=== PATIENT | male | born 1970 | race Caucasian/White ===

== ENCOUNTER 2017-02-07 19:47 | Emergency (ER) | payer OTHER ==
[2017-02-07] MEDS ORDERED: Ketorolac INJ* 60 MG/2 ML VIAL IM ONE (22:11)
--- NOTE | 2017-02-07 22:19 | UC ---
Neck Pain HPI - HPI Summary HPI Summary: 46 y/o male present to the urgent are c/o of neck pain for the past 2 weeks. Pt reports he works in construction. He was fixing a ceiling and that's when the pain started. He has been taking ibuprofen on and off. However pain is getting worse specially with movement. Pain today is 10/10 w/ movement and 8/ 10 at rest with radiation to the head. Pt denies any numbness or tingling over the upper extremities. Pt denies fever, SHEARER, SOB, chest pain, N/V/D, Pt has not other complain - History of Current Complaint Hx Obtained From: Patient Onset/Duration Of Injury/Symptoms: Weeks Timing: Constant Onset/Duration: Gradual Onset, Lasting Weeks, Still Present Severity: Severe Pain Intensity: 10 - with movement Pain Scale Used: 0-10 Numeric Location: Discrete At: - neck, Radiates To: - head Character: Sharp Aggravating Factors: Movement Alleviating Factors: OTC Meds Associated Signs & Symptoms: Positive: Negative. Negative: Swelling, Redness, Fever, Nuchal Rigity, Weakness, Headache, Paresthesia - Risk Factors Meningitis Risk Factors: Negative <Mable Kennedy - Last Filed: 02/09/17 17:56> <Alison Alcantara - Last Filed: 02/09/17 20:45> - History of Current Complaint Chief Complaint: UCUpperExtremity Stated Complaint: NECK AND SHOULDER PAIN Time Seen by Provider: 02/07/17 22:01 - Allergies/Home Medications Allergies/Adverse Reactions: Allergies Allergy/AdvReac Type Severity Reaction Status Date / Time No Known Allergies Allergy Verified 09/05/14 12:21 PMH/Surg Hx/FS Hx/Imm Hx Previously Healthy: Yes - Surgical History Surgical History: Yes Surgery Procedure, Year, and Place: right leg, femur fx - Family History Known Family History: Positive: None - Social History Occupation: Employed Full-time Lives: With Family Alcohol Use: Occasionally Substance Use Type: None Smoking Status (MU): Heavy Every Day Tobacco Smoker Type: Cigarettes Amount Used/How Often: 1ppd Length of Time of Smoking/Using Tobacco: 30 years Have You Smoked in the Last Year: Yes Household Exposure Type: Cigarettes <Mable Kennedy - Last Filed: 02/09/17 17:56> Review Of Systems Constitutional: Positive: Negative Skin: Positive: Negative Eyes: Positive: Negative ENT: Positive: Negative Respiratory: Positive: Negative Cardiovascular: Positive: Negative Gastrointestinal: Positive: Negative Genitourinary: Positive: Negative Musculoskeletal: Positive: Decreased ROM - due to neck pain Neurological: Positive: Negative Psychological: Positive: Negative All Other Systems Reviewed And Are Negative: Yes <Mable Kennedy Last Filed: 02/09/17 17:56> Physical Exam Triage Information Reviewed: Yes Appearance: Well-Appearing, No Pain Distress, Well-Nourished, Thin Vital Signs: Initial Vital Signs Temp 98.2 F 02/07/17 19:52 Pulse 94 02/07/17 19:52 Resp 18 02/07/17 19:52 BP 130/92 02/07/17 19:52 Pulse Ox 100 02/07/17 19:52 Vital Signs Reviewed: Yes Eye Exam: Normal Eyes: Positive: Conjunctiva Clear - PERRLA, EOMI, fundi grossly normal ENT Exam: Normal ENT: Positive: Normal ENT inspection, Hearing grossly normal, Pharynx normal, TMs normal Dental Exam: Normal Neck: Positive: Tenderness @ - point tenderness over the trapezius muscles, w/ moderate spasm. Decrease ROM on flexion and extesion due to pain. No erythema or swelling observed. Positive sensation and reflexes intanct over the upper extremities. pulses and capillary refill intact.. Negative: No Lymphadenopathy Respiratory Exam: Normal Respiratory: Positive: Chest non-tender, Lungs clear, Normal breath sounds, No respiratory distress Cardiovascular Exam: Normal Cardiovascular: Positive: RRR, No Murmur, Pulses Normal, Brisk Capillary Refill Abdominal Exam: Normal Abdomen Description: Positive: Nontender, No Organomegaly, Soft. Negative: CVA Tenderness (R), CVA Tenderness (L) Bowel Sounds: Positive: Present Musculoskeletal Exam: Normal Musculoskeletal: Positive: Strength Intact, ROM Intact, No Edema Neurological Exam: Normal Neurological: Positive: Alert Psychological Exam: Normal Skin Exam: Normal <Mable Kennedy Last Filed: 02/09/17 17:56> Vital Signs: Initial Vital Signs Temp 98.2 F 02/07/17 19:52 Pulse 94 02/07/17 19:52 Resp 18 02/07/17 19:52 BP 130/92 02/07/17 19:52 Pulse Ox 100 07/25/17 19:52 <Alison Alcantara - Last Filed: 02/09/17 20:45> Neck Pain Course/Dx - Course Course Of Treatment: 46 y/o male present to the urgent are c/o of neck pain for the past 2 weeks. 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 He was fixing a ceiling and that's when the pain started. He has been taking ibuprofen on and off. However pain is getting worse specially with movement. Pain today is 10/ 10 w/ movement and 8/10 at rest with radiation to the head. Pt denies any numbness or tingling over the upper extremities. Pt denies fever, SHEARER, SOB, chest pain, N/V/D. Hx obtained. PE abnormal findings:point tenderness over the trapezius muscles, w/ moderate spasm. Decrease ROM on flexion and extesion due to pain. No erythema or swelling observed. Positive sensation and reflexes intanct over the upper extremities. pulses and capillary refill intact. Pt Rx Robaxin and Naproxen PO to alleviate symptoms, he was placed on a soft collar to release neck tension. Advised to f/u with PCP if symptoms do not improve. Pt understood and agreed and left the clinic ambulating. Pt advised on decrease salt intake in his diet due to his elevated BP, monitor his BP at home and f/u with a PCP form the [facility] referral center ffor further management. - Differential Dx/Diagnosis Differential Dx/HQI/PQRI: Arthritis, Sprain, Strain, Torticollis Provider Diagnoses: 1- Acute neck pain and spasm. 2- Elevated BP w/o Hx of HTN <Mable Kennedy - Last Filed: 02/09/17 17:56> Discharge <Mable Kennedy - Last Filed: 02/09/17 17:56> <Alison Alcantara - Last Filed: 02/09/17 20:45> - Discharge Plan Condition: Stable Disposition: HOME Prescriptions: Methocarbamol TAB* [Robaxin 500 MG TAB*] 750 mg PO TID PRN #12 tab PRN Reason: Spasms Naproxen TAB* [Naprosyn 250 mg TAB*] 500 mg PO Q8H PRN #30 tab PRN Reason: Pain Patient Education Materials: Cervical Strain (ED), Neck Pain (ED) Referrals: [facility] PHYSICIAN REFERRAL [Outside] No Primary Care Phys,NOPCP [Primary Care Provider] - Additional Instructions: Please take medications as indicated to alleviate symptoms of pain and spasm. Please wear the neck collar until symptoms improve. Please f/u with a PCP from the [facility] referral center for further evaluation and treatment. Please decrease salt in your diet and monitor your blood pressure and f/u with PCP for further management of elevated BP. Attestation Statement User Type: Provider - I was available for consult. This patient was seen by the advanced practice provider. The patient was not presented to, seen by, or examined by me.-Alejandro <Alison Alcantara - Last Filed: 02/09/17 20:45>
[2017-02-07 22:36] VITALS: BP 146/109
== END 2017-02-07 22:36 | disposition home or self-care (01) ==
LOC: UCEAST 19:47
DX: M54.2 Cervicalgia (principal); M62.830 Muscle spasm of back; R03.0 Elevated blood-pressure reading, without diagnosis of hypertension; F17.210 Nicotine dependence, cigarettes, uncomplicated
CPT/HCPCS: 96372; 99213; G0463; J1885

== ENCOUNTER 2017-04-05 16:21 | Observation (INO) | payer OTHER ==
[2017-04-05] MEDS ORDERED: Diazepam SYRINGE* 5 MG/ML SYRINGE IV ONE ×2 (17:03→19:32)
[2017-04-05] MEDS ORDERED: Aspirin Low Dose CHEW TAB* 81 MG PO ONE (17:04)
[2017-04-05] MEDS ORDERED: NS 0.9% 1000 ML* 1,000 ML IV ONE ×2 (17:04→19:30)
[2017-04-05] MEDS ORDERED: Aspirin Low Dose CHEW TAB* 81 MG ONE (17:07)
[2017-04-05 17:30] LABS: Hematocrit 32 % (42-52); Hemoglobin 11.1 g/dl (14.0-18.0); Mean Corpuscular HGB Conc 34 g/dl (31-36); Mean Corpuscular Hemoglobin 29 pg (27-31); Mean Corpuscular Volume 85 fL (80-94); Mean Platelet Volume 8 um3 (7.4-10.4); Red Blood Count 3.81 10^6/ul (4.0-5.4); Red Cell Distribution Width 15 % (10.5-15); White Blood Count 9.3 10^3/ul (3.5-10.8)
[2017-04-05 17:57] LABS: Albumin 2.7 g/dL (3.2-5.2); BUN/Creatinine Ratio 18.3 (8-20); Calcium 8.8 mg/dL (8.6-10.3); EGFR African American 130.1 (>60); EGFR Non-African American 101.1 (>60); Globulin 5.9 g/dL (2-4); Magnesium 1.7 mg/dL (1.9-2.7); Potassium 3.5 mmol/L (3.5-5.0); Total Bilirubin 0.4 mg/dL (0.2-1.0); Total Protein 8.6 g/dL (6.4-8.9)
[2017-04-05 18:06] LABS: TSH (Thyroid Stimulating Horm) 15.2 mcIU/mL (0.34-5.60)
--- NOTE | 2017-04-05 19:21 | ED ---
Complex/Multi-Sys Presentation - HPI Summary HPI Summary: Pt here w/ multiple sx. He is here w/ alternating, intermittent neck pain - started 2 weeks ago on Rt side w/ jaw pain/tightness. Today has shifted to Lt side of neck and jaw. Also has upper back pain. 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 Following day was sore but iced and continued to work. Was seen at a few days later as pain was too bad - rx'd NSAID's, muscle relaxer, heat. Helped for a few days but pain has mostly been getting worse. He also works long hours at a [employer] shop - has been working extra hours as well. Noticed Lt hip pain upon waking the other day and then Rt hip pain this morning - feels like someone hit him w/ a shovel. 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 Admits to h/o self-diagnosed panic attacks - does not feel he's having one now but reports 10/10 pain. Oral dryness intermittent @ night past few weeks. Increased urination last night. Denies chest pain, SOB, difficulty breathing or swallowing, dental pain, ST, otalgia, rhinorrhea, cough, mid/lower back pain, ab pain, fever, chills, N/V/D, skin changes, LE edema. No trauma to body (ie. MVA, fall from height, etc). Admits to 2 cups of coffee in the AM but otherwise no caffeine intake. Smokes cigarettes daily, 1-1.5 PPD. ETOH intake is rare ((couple of times a year). Does admit to smoking marijuana about 2 x month (recreationally). Has not seen a medical provider in 20 years. Established with new PCP today - has CPE schedule for beginning of April. - History Of Current Complaint Chief Complaint: EDGeneral Time Seen by Provider: 04/05/17 16:42 Hx Obtained From: Patient, Family/Targeting Acquisition Officer - female partner - Allergies/Home Medications Allergies/Adverse Reactions: Allergies Allergy/AdvReac Type Severity Reaction Status Date / Time No Known Allergies Allergy Verified 09/05/14 12:21 PMH/Surg Hx/FS Hx/Imm Hx Previously Healthy: Yes - no medical attention in 20 yrs Endocrine/Hematology History: Denies: Hx Thyroid Disease, Hx Anemia Cardiovascular History: Denies: Hx Aneurysm, Hx Angina, Hx Atrial Fibrillation, Hx Congenital Heart Disease, Hx Congestive Heart Failure, Hx Coronary Artery Disease, Hx Embolism, Hx Hypercholesterolemia, Hx Hypotension, Hx Hypertension, Hx Myocardial Infarction Psychiatric History: Reports: Hx Anxiety - self-proclaimed panic attacks - Surgical History Surgery Procedure, Year, and Place: right leg, femur fx - Immunization History Immunizations Up to Date: Unable to Obtain/Confirm Infectious Disease History: Yes Infectious Disease History: Denies: Hx Clostridium Difficile, Hx Hepatitis, Hx Human Immunodeficiency Virus (HIV), Hx of Known/Suspected MRSA, Hx Shingles, Hx Tuberculosis, Hx Known/ Suspected VRE, Hx Known/Suspected VRSA, History Other Infectious Disease, Traveled Outside the [place] in Last 30 Days - Family History Known Family History: Positive: None - Social History Occupation: Employed Full-time - [employer] Lives: With Family Alcohol Use: Occasionally Hx Substance Use: Yes Substance Use Type: Reports: Marijuana - 2 x month Hx Tobacco Use: Yes Smoking Status (MU): Current Every Day Smoker Type: Cigarettes Amount Used/How Often: 1ppd Length of Time of Smoking/Using Tobacco: 30 years Have You Smoked in the Last Year: Yes Review of Systems Constitutional: Negative Negative: Fever, Chills, Fatigue Eyes: Negative Negative: Photophobia, Blurred Vision, Diplopia ENT: Negative Cardiovascular: Negative Respiratory: Negative Gastrointestinal: Negative Positive: see HPI Musculoskeletal: Other - see HPI Skin: Negative Neurological: Other - see HPI Positive: Anxious All Other Systems Reviewed And Are Negative: Yes Physical Exam Triage Information Reviewed: Yes Vital Signs On Initial Exam: Initial Vitals Temp Pulse Resp BP Pulse Ox 99.2 F 143 20 143/85 97 04/05/17 16:24 04/05/17 16:24 04/05/17 16:24 04/05/17 16:24 04/05/17 16:24 Vital Signs Reviewed: Yes Appearance: Positive: Well-Nourished - appears anxious and in moderate discomfort Skin: Positive: Warm, Dry Head/Face: Positive: Normal Head/Face Inspection Eyes: Positive: Normal, EOMI, JOAO, Conjunctiva Clear ENT: Positive: Hearing grossly normal. Negative: Pharynx normal - mucosa somewhat dry, Nasal congestion, Nasal drainage Neck: Positive: Supple, Nontender, No Lymphadenopathy Respiratory/Lung Sounds: Positive: Clear to Auscultation, Breath Sounds Present. Negative: Rales, Rhonchi, Stridor, Wheezes Cardiovascular: Positive: Normal, Pulses are Symmetrical in both Upper and Lower Extremities, Tachycardia, S1, S2. Negative: Murmur, Rub, Leg Edema Left, Leg Edema Right Abdomen Description: Positive: Nontender, No Organomegaly, Guarding Bowel Sounds: Positive: Present Musculoskeletal: Positive: Normal, Strength/ROM Intact Neurological: Positive: Normal, Sensory/Motor Intact, Alert, Oriented to Person Place, Time, CN Intact II-III Psychiatric: Positive: Anxious - Pam Coma Scale Coma Scale Total: 15 Diagnostics - Vital Signs Vital Signs Temp Pulse Resp BP Pulse Ox 04/05/17 19:00 124 25 132/81 96 04/05/17 18:30 125 29 119/76 96 04/05/17 18:00 131 17 119/72 97 04/05/17 17:30 132 15 123/87 96 04/05/17 17:13 21 04/05/17 17:00 13 125/100 04/05/17 16:37 139 97 04/05/17 16:36 130/94 04/05/17 16:24 99.2 F 143 20 143/85 97 - Laboratory Lab Results: Lab Results 04/05/17 04/05/17 04/05/17 Range/Units 17:10 17:10 17:10 WBC 9.3 (3.5-10.8) 10^3/ul RBC 3.81 L (4.0-5.4) 10^6/ul Hgb 11.1 L (14.0-18.0) g/dl Hct 32 L (42-52) % MCV 85 (80-94) fL MCH 29 (27-31) pg MCHC 34 (31-36) g/dl RDW 15 (10.5-15) % Plt Count 328 (150-450) 10^3/ul MPV 8 (7.4-10.4) um3 Neut % (Auto) 60.7 (38-83) % Lymph % (Auto) 30.9 (25-47) % [place] % (Auto) 6.5 (1-9) % Eos % (Auto) 1.1 (0-6) % Baso % (Auto) 0.8 (0-2) % Absolute Neuts (auto) 5.6 (1.5-7.7) 10^3/ul Absolute Lymphs (auto) 2.9 (1.0-4.8) 10^3/ul Absolute Monos (auto) 0.6 (0-0.8) 10^3/ul Absolute Eos (auto) 0.1 (0-0.6) 10^3/ul Absolute Basos (auto) 0.1 (0-0.2) 10^3/ul Absolute Nucleated RBC 0.01 10^3/ul Nucleated RBC % 0.2 INR (Anticoag Therapy) 1.02 (0.89-1.11) APTT 36.1 (26.0-36.3) seconds Sodium 127 L (133-145) mmol/L Potassium 3.5 (3.5-5.0) mmol/L Chloride 98 L (101-111) mmol/L Carbon Dioxide 26 (22-32) mmol/L Anion Gap 3 (2-11) mmol/L BUN 15 (6-24) mg/dL Creatinine 0.82 (0.67-1.17) mg/dL Est GFR ( Amer) 130.1 (>60) Est GFR (Non-Af Amer) 101.1 (>60) BUN/Creatinine Ratio 18.3 (8-20) Glucose 127 H (70-100) mg/dL Lactic Acid (0.5-2.0) mmol/L Calcium 8.8 (8.6-10.3) mg/dL Magnesium 1.7 L (1.9-2.7) mg/dL Total Bilirubin 0.40 (0.2-1.0) mg/dL AST 22 (13-39) U/L ALT 16 (7-52) U/L Alkaline Phosphatase 88 (34-104) U/L Troponin I 0.00 (<0.04) ng/mL Total Protein 8.6 (6.4-8.9) g/dL Albumin 2.7 L (3.2-5.2) g/dL Globulin 5.9 H (2-4) g/dL Albumin/Globulin Ratio 0.5 L (1-3) TSH 15.20 H (0.34-5.60) mcIU/mL Free T4 Pending 04/05/17 Range/Units 17:10 WBC (3.5-10.8) 10^3/ul RBC (4.0-5.4) 10^6/ul Hgb (14.0-18.0) g/dl Hct (42-52) % MCV (80-94) fL MCH (27-31) pg MCHC (31-36) g/dl RDW (10.5-15) % Plt Count (150-450) 10^3/ul MPV (7.4-10.4) um3 Neut % (Auto) (38-83) % Lymph % (Auto) (25-47) % [place] % (Auto) (1-9) % Eos % (Auto) (0-6) % Baso % (Auto) (0-2) % Absolute Neuts (auto) (1.5-7.7) 10^3/ul Absolute Lymphs (auto) (1.0-4.8) 10^3/ul Absolute Monos (auto) (0-0.8) 10^3/ul Absolute Eos (auto) (0-0.6) 10^3/ul Absolute Basos (auto) (0-0.2) 10^3/ul Absolute Nucleated RBC 10^3/ul Nucleated RBC % INR (Anticoag Therapy) (0.89-1.11) APTT (26.0-36.3) seconds Sodium (133-145) mmol/L Potassium (3.5-5.0) mmol/L Chloride (101-111) mmol/L Carbon Dioxide (22-32) mmol/L Anion Gap (2-11) mmol/L BUN (6-24) mg/dL Creatinine (0.67-1.17) mg/dL Est GFR ( Amer) (>60) Est GFR (Non-Af Amer) (>60) BUN/Creatinine Ratio (8-20) Glucose (70-100) mg/dL Lactic Acid 1.0 (0.5-2.0) mmol/L Calcium (8.6-10.3) mg/dL Magnesium (1.9-2.7) mg/dL Total Bilirubin (0.2-1.0) mg/dL AST (13-39) U/L ALT (7-52) U/L Alkaline Phosphatase (34-104) U/L Troponin I (<0.04) ng/mL Total Protein (6.4-8.9) g/dL Albumin (3.2-5.2) g/dL Globulin (2-4) g/dL Albumin/Globulin Ratio (1-3) TSH (0.34-5.60) mcIU/mL Free T4 Result Diagrams: 04/05/17 17:10 04/05/17 17:10 Lab Statement: Any lab studies that have been ordered have been reviewed, and results considered in the medical decision making process. Re-Evaluation - Re-Evaluation First Eval Change: Improved - initially apprehensive about trying muscle relaxer/anxiety medication - agreed to low dose diazepam - mild improvement of heart rate after 2mg diazepam, not much change in anxiety - pt willing to try more Second Eval Change: Improved - anxiety much better and pain from 10/10 to 4/10 after 5mg diazepam Complex Multi-Symp Course/Dx Course Of Treatment: Pt presents w/ multiple areas of tightness and pain, today especially in Lt neck/jaw - cardiac w/u intiated and no MT per EKG and trops neg x 2 however he's Sinus tachy. TSH elevated but FT4 WNL. D-dimer then ordered which was elevated to 500's - CTA neg for PE and no comments on dissection. Mild dehydration - provided 2 L of fluid IV. Even after pt clinically feels more comfortable (reduced pain and anxiety) and BP improved, his heart rate remains elevated in 110's. Discuss[address] Dr[address] Garibay to admit. Pt and partner agree w/ plan. - Diagnoses Provider Diagnoses: Tachycardia, Muscle spasm Discharge - Discharge Plan Condition: Stable Disposition: ADMITTED TO [facility]
[2017-04-05 19:23] LABS: Free T4 0.84 ng/dL (0.61-1.12)
[2017-04-05] MEDS ORDERED: Iohexol 350* (CONTRAST) 500 ML MDV IV ONE (20:00)
[2017-04-05 20:13] LABS: Urine Bilirubin Negative (Negative); Urine Glucose Negative (Negative); Urine Nitrite Negative (Negative)
[2017-04-05 20:16] LABS: Urine Bacteria Absent (Absent)
--- NOTE | 2017-04-05 20:57 | RAD ---
INDICATION: Multifocal pain and shortness of breath COMPARISON: None TECHNIQUE: Axial source images were acquired following the administration of intravenously and utilizing CT angiographic technique. Coronal and sagittal reconstructed images were constructed and reviewed. FINDINGS: There there are no filling defects in the pulmonary arteries to indicate acute pulmonary embolic disease. There are diffuse centrilobular emphysematous changes most severely affecting the bilateral lung apices. There are no focal infiltrates or effusions. There are no pulmonary parenchymal masses. The heart is normal in size. There is no evidence of pericardial effusion. There is no evidence of aortic aneurysm or dissection. There is no mediastinal, hilar, or axillary lymphadenopathy. The visualized osseous structures appear normal. Limited views of the upper abdomen show no abnormalities. IMPRESSION: 1. No CT of evidence of pulmonary embolism. 2. Appearance of lungs is consistent with emphysematous changes.
[2017-04-05] MEDS ORDERED: Morphine INJ* 2 MG/ML 1 ML CARPUJECT IV PRN (21:39)
[2017-04-05] MEDS ORDERED: Acetaminophen TAB* 325 MG PO PRN (21:39)
[2017-04-05] MEDS ORDERED: Al Hydrox/Mg Hydrox/Simet LIQ* 30 ML UDC PO PRN (21:39)
[2017-04-05] MEDS ORDERED: oxyCODONE/Acetamin 5/325 MG* TAB PO PRN (21:39)
[2017-04-05] MEDS ORDERED: Naproxen TAB* 250 MG PO PRN (21:41)
[2017-04-05] MEDS ORDERED: Methocarbamol TAB* 500 MG PO PRN (21:41)
[2017-04-05] MEDS ORDERED: Magnesium Sulfate 2 GM IV* 2 GM/50 ML BAG IVPB ONE (21:45)
[2017-04-05] MEDS ORDERED: NS 0.9% 1000 ML* 1,000 ML IV SCH ×3 (21:45→22:09)
[2017-04-05] MEDS ORDERED: Nicotine Inhaler* 10 MG AMP INH PRN (22:09)
[2017-04-05] MEDS ORDERED: Nicotine Patch Removal NOTE PATCH OFF SCH (22:13)
[2017-04-05] MEDS ORDERED: Mouth Piece, Nicotine* 1 EACH CARTRIDGE INH SCH (22:13)
[2017-04-05 22:52] LABS: Benzodiazepine Urine Screen None Detected (None Detect)
[2017-04-05 23:21] LABS: Ferritin 124.4 ng/mL (24-336)
[2017-04-05 23:25] LABS: Folate 11.13 ng/mL (>3.99)
[2017-04-05] MEDS: Metoprolol Tartrate TAB* 25 MG PO SCH (23:34)
--- NOTE | 2017-04-06 03:39 | HP ---
CC: Dr. Nunes * HISTORY AND PHYSICAL: DATE OF ADMISSION: 04/05/17 PRIMARY CARE PHYSICIAN: Dr. Nunes. CHIEF COMPLAINT: Abnormal EKG, sent from Dr. Nunes's office. HISTORY OF PRESENT ILLNESS: Henrique Rodríguez is a 47-year-old male with a past medical history significant for smoking who stated that he works in one of the local [employer] and in February when he was putting something up on a shelf he strained his muscle on the right side of his neck and shoulder. Since then he had been taking naproxen up to 3 times a day almost every day and Robaxin for muscle relaxation. He stated that his pain still is there and he indicated point tenderness in the right upper shoulder. In addition to that today in the morning, he started having left-sided jaw pain. He also states that his calves are heavy every time he walks and he had been feeling very tired in the past couple of weeks. He went to see Dr. Nunes with those complaints, who obtained an EKG and sent the patient to ED for evaluation. Here he continued to be in sinus tachycardia with the heart rate in the 120s with negative T-waves in lateral leads. His further workup included a CT angiogram of the chest which was negative for a PE and troponin that was 0 twice. he continued to be tachycardic which slightly improved after a dose of diazepam in the emergency department. With the above mentioned problems he is going to be placed on observation to rule out acute coronary syndrome. PAST MEDICAL HISTORY: None. MEDICATIONS: Include: 1. Naproxen 500 mg up to 3 times a day for pain. 2. Robaxin on a p.r.n. basis. ALLERGIES: No known drug allergies. FAMILY HISTORY: Positive for grandfather with colon cancer, mother with history of multiple sclerosis, and father with diabetes. SOCIAL HISTORY: The patient smokes 1 pack per day, started smoking when he was 13. He denies any alcohol or drug use. He lives alone and his surrogate would be his aunt Puja. Her phone number is [phone]. REVIEW OF SYSTEMS: Please see history of present illness. Positive for overall fatigue. Negative for chest pain. Positive for left-sided jaw pain today. Currently, the patient is pain free. All the remaining 14 systems were reviewed with the patient and apart from the above mentioned in the history of present illness were negative. PHYSICAL EXAMINATION GENERAL: The patient is a very pleasant 47-year-old male who is in no acute distress. Alert, awake, and oriented x3. VITAL SIGNS: Blood pressure of 132/81, heart rate of 115 and regular, respiratory rate of 25, oxygen saturation 96% on room air, and temperature of 99.2. HEENT: Atraumatic and normocephalic. Eyes pupils are equal, round, and reactive to light and accommodation. Oropharynx clear. Mucosa moist. NECK: Supple. Positive for JVD bilaterally. There was no adenopathy and no bruits noted. RESPIRATORY: Coarse breath sounds at the bilateral bases, otherwise clear. CARDIOVASCULAR: Regular, rate, and rhythm. Tachycardia. No murmur. ABDOMEN: Soft and nontender. Bowel sounds present in all 4 quadrants. EXTREMITIES: There is no edema, pulses are +2 bilaterally. No clubbing or cyanosis. SKIN: Evaluation of the skin, no ecchymotic areas or rashes noted. NEUROLOGIC: Speech clear. Cranial nerves II through XII grossly intact. Motor strength is 5/5 bilaterally. LABORATORY DATA: Showed white blood cell count of 9.3, hemoglobin 11.1, hematocrit of 32, and platelets of 328. A D-dimer of 541. Sodium of 127, potassium 3.5, chloride 98, carbon dioxide 26 , BUN 15, creatinine of 0.82. Liver function tests were unremarkable. Magnesium of 1.7, albumin of 2.7, globulin of 5.9, TSH of 15, free T4 of 0.8, troponin of 0.0. Urinalysis showed granular casts and hyaline casts and +[address] angiogram of the chest showed emphysematous changes and no PE. The patient's EKG showed sinus tachycardia with a heart rate of 133 per minute with negative T-waves in leads V4 to V6. ASSESSMENT AND PLAN: 1. In regards to the patient's jaw pain, abnormal EKG and sinus tachycardia, I will ask the credit collection associate to please see the patient in consultation. The patient likely will be requested to have a treadmill Myoview in the morning as well as a transthoracic echocardiogram. At this point there is a possibility that he has response tachycardia due to low EF. It could have been worsened by non-steroidal antiinflammatory use. 2. In regards to the patient's smoking, he was strongly counseled to stop smoking. He is going to be placed on nicotine patch as well as inhaler. 3. For DVT prophylaxis, the patient is at low risk and ambulation is going to be encouraged. 4. The patient has elevated TSH. At this point his free T4 is within normal limits and our advise for the patient to follow up with Dr. Nunes. We will repeat TSH in approximately 4 weeks. Please also note that during the evaluation the patient had point tenderness over the right deltoid platysma muscle on palpation. For the time being he is going to be placed on Tylenol and we will avoid nonsteroidal antiinflammatory medications. The patient's code status is full and his surrogate is his aunt Puja. TIME SPENT: Approximately 65 minutes was spent on the admission of this patient , more than half that time was spent [id number] with the patient during the interview and physical exam. [id number] #: [id number] MTDD
[2017-04-06 06:00] LABS: Hematocrit 30 % (42-52); Hemoglobin 10.4 g/dl (14.0-18.0); Mean Corpuscular HGB Conc 34 g/dl (31-36); Mean Corpuscular Hemoglobin 30 pg (27-31); Mean Corpuscular Volume 87 fL (80-94); Mean Platelet Volume 8 um3 (7.4-10.4); Red Cell Distribution Width 15 % (10.5-15)
[2017-04-06 06:16] LABS: BUN/Creatinine Ratio 17.4 (8-20); Calcium 7.8 mg/dL (8.6-10.3); EGFR African American 123.1 (>60); EGFR Non-African American 95.7 (>60); Magnesium 1.9 mg/dL (1.9-2.7); Potassium 3.8 mmol/L (3.5-5.0)
[2017-04-06 07:22] VITALS: BP 121/87
[2017-04-06 08:45] LABS: HDL Cholesterol 14.4 mg/dL
[2017-04-06] MEDS ORDERED: Nicotine PATCH 14 MG/24 HR* PATCH TRANSDERM SCH (09:00)
--- NOTE | 2017-04-06 09:52 | RAD ---
Edited for charges. INDICATION: Tachycardia. Chest pain. COMPARISON: None TECHNIQUE: A single day SPECT protocol was utilized. Rest images were acquired following the intravenous injection of 10.04 millicuries of technetium 99m tetrofosmin. Exercise stress images were acquired following the intravenous administration of 25.77 millicuries of technetium 99m tetrofosmin. The patient was exercised to a peak heart rate of 144 which is 83% of age predicted maximum. FINDINGS: There are no defects of the stress-induced or fixed nature at the level of exercise intensity achieved. The cardiac chamber size is normal. There are no wall motion abnormalities. The ejection fraction is calculated at 70 percent during stress. IMPRESSION: MILDLY SUBOPTIMAL EXERCISE TOLERANCE THE PATIENT ACHIEVED A PEAK HEART RATE OF 83% OF AGE-PREDICTED MAXIMUM. NO SCINTIGRAPHIC EVIDENCE OF ISCHEMIA. ASSESSMENT: HIGH-RISK, INTERMEDIATE-RISK, OR LOW-RISK Based on imaging criteria from ACC/AHA 2002 Guideline Update for the Management of Patients With Chronic Stable Angina Table 23. Noninvasive Risk Stratification. MTDD
[2017-04-06] MEDS: Metoprolol Tartrate TAB* 25 MG PO SCH (10:14)
--- NOTE | 2017-04-06 12:07 | ECHO ---
Patient: KEMAR QUINN [facility] Rec#: [id number] : 1970 Date: 04/06/2017 Age: 47y Height: 172.72 cm / 68.0 in Weight: 67.13 kg / 148.0 lbs Sex: M BSA: 1.8 Room#: 452 Admit Date#: 04/05/2017 Type: Inpatient Referring: Sheri Garibay MD Reading: Mike Boss MD Professional Engineer: Jade Melton RDCS,RDMS CC: Carlos Nunes MD Transthoracic Echocardiogram Indication: Abnormal EKG BP: 135/92 HR: 103 Rhythm: Tachycardia Findings History: Smoker Technical Comments: The study quality is good. Completed 1035 Left Ventricle: The left ventricular chamber size is normal. Mild concentric left ventricular hypertrophy is observed. The estimated ejection fraction is 50-55%. The assessment of diastolic function is non-diagnostic. Left Atrium: The left atrial chamber size is normal. Right Ventricle: The right ventricular cavity size is normal. The right ventricular global systolic function is normal. Right Atrium: The right atrium is slightly dilated. Aortic Valve: The aortic valve is trileaflet. There is no evidence of aortic valve thickening. Systolic excursion of the aortic valve is normal. There is a trace of aortic regurgitation. There is no evidence of aortic stenosis. Mitral Valve: The mitral valve leaflets appear normal. There is a trace of mitral regurgitation. There is no evidence of mitral stenosis. Tricuspid Valve: The tricuspid valve leaflets are normal. There is trace tricuspid regurgitation. Unable to estimate the right ventricular systolic pressure. Pulmonic Valve: There is no evidence of pulmonic valve thickening. There is a trace pulmonic regurgitation. Pericardium: There is a small pericardial effusion. The pericardial effusion is seen adjacent to the right ventricle.There is no hemodynamic compromise. Aorta: The aortic root appears normal. The ascending aorta is not well visualized. There is no dilatation of the aortic arch. Pulmonary Artery: The main pulmonary artery is not well visualized. Venous: The inferior vena cava is dilated. There is an approximate 50% respiratory change in the inferior vena cava dimension. Summary: There was not any prior study for comparison. Conclusions The left ventricular chamber size is normal. Mild concentric left ventricular hypertrophy is observed. The estimated ejection fraction is 50-55%. The assessment of diastolic function is non-diagnostic. There is a trace of aortic regurgitation. There is trace tricuspid regurgitation. The pericardial effusion is seen adjacent to the right ventricle.There is no hemodynamic compromise. Measurements Name Value Normal Range RVIDd (AP) 2D 2.5 cm (0.9 - 2.6) RVDdMajor (2D) 3.2 cm (2.2 - 4.4) RAd ISD 4CH 5 cm (3.4 - 4.9) RA (A4C)W 4.8 cm (2.9 - 4.6) IVSd (2D) 1.2 cm (0.6 - 1) LVPWd (2D) 1.1 cm (0.6 - 1) LVIDd (2D) 4.3 cm (3.6 - 5.4) LVIDs (2D) 3.4 cm - LV FS (2D) 21 % (25 - 45) Aortic Annulus 2 cm (1.4 - 2.6) Ao root diameter (2D) 3.4 cm (2.1 - 3.5) Aortic arch 2.7 cm (1.8 - 3.4) LA dimension (AP) 2D 3.7 cm (2.3 - 3.8) LAd ISD 4CH 5.9 cm (2.9 - 5.3) LA ISD 4CH W 4.2 cm (2.5 - 4.5) Name Value Normal Range LA ESV SP 4CH (A/L) 58.97 ml - LA ESV SP 2CH (A/L) 57.15 ml - LA ESV BP (A/L) 58.69 ml - LA ESV BP (A/L) index 33 ml/m2 - LA ESV SP 4CH (MOD) 55.24 ml - LA ESV SP 2CH (MOD) 55.09 ml - Name Value Normal Range MV E-wave Vmax 1.1 m/sec - MV deceleration time 89 msec - LV lateral e' Vmax 0.2 m/sec - LV E:e' lateral ratio 5.5 ratio - Name Value Normal Range AV Vmax 1.2 m/sec - AV VTI 17.4 cm - AV peak gradient 6 mmHg - AV mean gradient 3 mmHg - LVOT Vmax 0.8 m/sec - LVOT VTI 14.1 cm - LVOT peak gradient 2.6 mmHg - LVOT mean gradient 1.6 mmHg - FABIAN Vmax 0.5 m/sec - Name Value Normal Range MV Vmax 1.2 m/sec - MV VTI 16 cm - MV peak gradient 6 mmHg - MV mean gradient 2.3 mmHg - MV PHT 41 msec - MVA (PHT) 5.4 cm2 - Name Value Normal Range RAP 8 mmHg - IVC diameter 2.6 cm - Name Value Normal Range PV Vmax 0.8 m/sec - PV peak gradient 2.6 mmHg -
[2017-04-06 14:30] LABS: C Reactive Protein 12.64 mg/L (< 5.00)
[2017-04-06 15:57] LABS: Total T3 1.32 ng/mL (0.87-1.78)
--- NOTE | 2017-04-06 18:27 | CONS ---
ADDENDUM NOW INCLUDED ON THIS REPORT CC: Hospitalist Service; Dr. Boss; Dr. Nunes CARDIOLOGY CONSULT: DATE OF CONSULT: 04/06/17 HISTORY OF PRESENT ILLNESS: I was asked by the hospitalist service to see this 47- year-old male patient who was sent from Dr. Nunes's office for jaw pain , arm pain, shoulder pain, and he was found to have abnormal EKG. As you know, he is a 47-year-old male patient who for about 6 to 7 weeks has been having multiple symptoms of pain syndrome of his jaw, neck, back, shoulder, joints and legs. He is currently a smoker 1 to 1.5 pack per day. He is unaware of his hyperlipidemia or diabetes, it is unknown to us. Possible hypertension, but he is not on medical treatment. He gives no history of congestive heart failure. No coronary artery disease. No history of myocardial infarction. He gives no acute viral illness. No fever. No chills. No nausea. No vomiting. No hematochezia. No skin rash. No abdominal pain. No syncope. In the emergency room, he had a CT scan of the chest that showed no evidence of pulmonary embolism. He was found to be tachycardic, heart rate about 110 sinus tachy. EKG, diffuse T-wave inversions. He gives no orthopnea. No PNDs appreciated. Cardiology consult was further requested because of his symptoms and abnormal EKG. MEDICATIONS: His medications as an outpatient include naproxen 500 mg up to 3 times a day for pain. ALLERGIES: No known drug allergies. FAMILY HISTORY: No family history of premature coronary artery disease. SOCIAL HISTORY: He smokes 1 pack per day, drinks socially. He is using marijuana. He has no IV drug abuse. He is single according to him. REVIEW OF SYSTEMS: Review all other systems essentially is negative. PHYSICAL EXAMINATION: On exam, he is awake, alert and oriented. He had multiple joints pain symptoms. No active chest pain. His vitals: Blood pressure 121/87, his pulse is 104, he is in sins rhythm. Head and Neck Exam: Normocephalic and atraumatic. Head, ears, nose, and throat essentially benign. Neck: Supple. JVP is not elevated. No carotid bruits. No masses in the neck is appreciated. Chest: Clear to auscultation. No rales. No wheeze. No added sounds. Heart: Normal. Regular S1, S2. No added sounds. No gallops, no rubs. Abdomen: Benign and soft. Positive bowel sounds. Extremities: No edema, no cyanosis, and no clubbing. Skin exam is normal. Psych: Normal affect and mood. MEMBERSHIP ADVISOR: No focal deficit is appreciated. DIAGNOSTIC STUDIES/LAB DATA: His EKG showed sinus rhythm, possibly Qs in V1 and V2, diffuse T-wave abnormality with T-wave inversions. His labs; white blood cell is 9, hemoglobin 10.4, hematocrit 30, and platelets 308,000. Chemistry; sodium 132, potassium 3.8, chloride 106, BUN 15, creatinine 0.86. Troponins are 0x3. LFTs are normal. Thyroid, TSH is significantly elevated at 15.20. Vitamin B12 161, which is low. Albumin 2.7 and globulin 5.9. Triglycerides 201, cholesterol 74, LDL 19, HDL 14.4. His D- dimer was 541. His CTA of the chest showed emphysema in the lungs. No evidence of pulmonary embolism and no evidence of pericardial effusion actually by the CT. EKG as described. IMPRESSION: The patient is 47-year-old male with: 1. A 6 to 7 weeks multiple symptoms of joint pain, arm pain, leg pain, jaw pain of unclear etiology at the present time. 2. Significantly elevated TSH by his recent labs. 3. Grossly abnormal EKG as described. 4. Current tobacco consumption and history of marijuana use. 5. Unknown current left ventricular systolic function. 6. Resting sinus tachycardia. 7. Borderline low potassium initially. 8. No evidence of pulmonary embolism or pericardial effusion by his CT scan of the chest. PLAN: I agree with admitting this patient to the telemetry. I agree with obtaining an echo to evaluate for left ventricular systolic function, wall motion, valvular disease, pericarditis, pericardial effusion, pulmonary hypertension. Stress test to risk stratify his symptoms and abnormal EKG is important for any evidence of ischemia. TSH level is significantly elevated. I defer to the hospitalist to evaluate for his thyroid disease. I would like to add ESR and CRP for his labs. Keep him well hydrated, avoid dehydration status, keep electrolytes especially potassium and magnesium normal, potassium more than 4, magnesium more than 2, and any further recommendation will be pending his clinical outcome. I will discuss him with the hospitalist service who is covering for today. I answered all his concerns and questions up to his satisfaction. ADDENDUM: I discussed him further via phone with Dr. Lopez from the hospitalist service. [id number]/CPS #: [id number] Sean- [id number]/CPS #: [id number] DESIRAE
--- NOTE | 2017-04-06 19:00 | CONS ---
CONSULTATION NOTE: * ADDENDUM: I discussed him further via phone with Dr. Lopez from the hospitalist service. [id number]/CPS #: [id number] DESIRAE
--- NOTE | 2017-04-07 10:01 | DS ---
DISCHARGE SUMMARY: DATE OF ADMISSION: 04/05/17 DATE OF DISCHARGE: 04/06/17 ADMITTING PROVIDER: Sheri Garibay MD. ATTENDING PHYSICIAN: Cody Lopez MD. PRIMARY CARE PHYSICIAN: Dr. Nunes. CHIEF COMPLAINT: Abnormal EKG sent from Dr. Nunes's office; right shoulder pain. HISTORY OF PRESENT ILLNESS AND HOSPITAL COURSE: Mr. Rodríguez is a 47-year-old male with a past medica l history, current smoker, anxiety, who for several weeks has developed right-sided neck and shoulde r muscular pain. 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 He had been taking naproxen up to 3 times a day and Robaxin for mu scle relaxants. The day of admission, he also seemed to sleep on his bed funny, having woken up wit h left-sided jaw pain. He noted that he had muscular aches and pains and has been increasingly fati gued over the last couple weeks. He went to see his primary care physician for acute visit on the d ay of admission and EKG found him to be in sinus tachycardia with heart rate in the 120s with negati ve T waves in lateral leads. The EKG was in the emergency room here. The patient was told by Dr. Hough that he had evidence of a prior heart attack and was sent for further evaluation in the ED given tachycardia and other symptoms. He was given the dose of diazepam overnight with some improve ment in his symptoms which did include some anxiety. He was placed on observation status to rule ou t acute coronary syndrome. LABORATORY DATA: Laboratory evaluation included negative troponin x3 (0.00). BNP was 80. TSH was noted to elevated at 15.2, but free T4 was 0.84 in the emergency room. Total T3 was also within nor mal limits on hospital day #2 at 1.32. The patient's utox was positive for cannabinoids. UA was po sitive for +2 protein and hyaline casts, and granular casts. Sodium was 127 on admission increased to 132 on hospital day #2. ESR was checked on hospital day #2 as elevated to 109. CRP was 12.64. In the emergency room, he had CT chest angiogram which did not show any evidence of pulmonary emboli sm but emphysematous changes. The patient underwent a nuclear cardiac stress test which was slightl y suboptimal given the patient achieved a peak heart rate of 83% of predicated but did not indicate any events of ischemia, ejection fraction was 70%. Executive Vice President And Chief Financial Officer, Dr. Boss saw the patient on h ospital day #2. Echocardiogram was done, which showed ejection fraction of 50% to 55%, nondiagnosti c then, assessment of diastolic function, trace aortic regurgitation, trace tricuspid regurgitation. Small to trace pericardial effusion adjacent to the right ventricle. The patient was considered s table for discharge with close outpatient follow up with primary care physician and most likely will need additional specialist's evaluation given his somewhat abnormal lab values and vague muscular s ymptoms. Of note, a complement C3, complement C4, protein electrophoresis, and antinuclear antibody were drawn but results still pending. Reevaluation of his thyroid function test in 4 weeks would be appropriate given his quite elevated TSH but normal T3 and T3 levels. His ESR was markedly elevate d and strong consideration for rheumatological evaluation would be prudent. DISCHARGE MEDICATIONS: Include: 1. Nicotine patch 14 mg every 24 hours. 2. Robaxin 725 mg p.o. t.i.d. p.r.n. 3. Lorazepam 0.5 mg daily p.r.n. for few tabs for breakthrough anxiety and ibuprofen 200 mg p.o. t. i.d. DISCHARGE DISPOSITION: Home. DISCHARGE DIET: Regular, unchanged. FOLLOWUP: Placed with Dr. Boss, Dr. Nunes and likely recommended to [facility]. TIME SPENT: 40 minutes. [id number]/[facility] #: [id number]
[2017-04-07 16:20] LABS: Albumin 2.2 g/dL (3.4-4.7); Gamma Globulin 3.5 g/dL (0.6-1.6); Total Protein(PEP) 7.6 g/dL (6.3 - 7.9)
== END 2017-04-06 17:26 | disposition home or self-care (01) ==
LOC: ED 16:21 → MEDTELE 21:39
PROVIDERS: ADMIT Internal Medicine; ATTEND Internal Medicine
DX: M54.2 Cervicalgia (principal); M25.511 Pain in right shoulder; R68.84 Jaw pain; F17.210 Nicotine dependence, cigarettes, uncomplicated; Z79.899 Other long term (current) drug therapy; R94.31 Abnormal electrocardiogram [ECG] [EKG]; I47.1 Supraventricular tachycardia
CPT/HCPCS: 36415; 71275; 78452; 80048; 80053; 80061; 80307; 81003; 81015; 82607; 82728; 82746; 83036; 83540; 83550; 83605; 83735; 83880; 84155; 84165; 84439; 84443; 84479; 84484; 85025; 85379; 85610; 85652; 85730; 86038; 86140; 86160; 93005; 93017; 93306; 96361; 96365; 96375; 96376; 99283; A9270-GY; A9502; G0378; J3360; J3475; Q9967

== ENCOUNTER 2017-10-30 20:59 | Emergency (ER) | payer OTHER ==
[2017-10-30] MEDS: NS 0.9% 1000 ML* 2,000 ML IV ONE (22:04)
[2017-10-30 22:13] LABS: ABS Basophils 0.1 10^3/ul (0-0.2); ABS Eosinophils 0 10^3/ul (0-0.6); ABS Lymphocytes 3.4 10^3/ul (1.0-4.8); ABS Monocytes 0.4 10^3/ul (0-0.8); ABS Neutrophils 6.3 10^3/ul (1.5-7.7); ABS Nucleated RBC 0 10^3/ul; Eosinophil % 0.3 % (0-6); Hematocrit 24 % (42-52); Hemoglobin 8.5 g/dl (14.0-18.0); Lymphocyte % 33.3 % (25-47); Mean Corpuscular HGB Conc 35 g/dl (31-36); Mean Corpuscular Hemoglobin 33 pg (27-31); Mean Corpuscular Volume 95 fL (80-94); Mean Platelet Volume 8.4 um3 (7.4-10.4); Nucleated Red Blood Cells % 0.1; Platelet Count 280 10^3/ul (150-450); Red Blood Count 2.58 10^6/ul (4.0-5.4); Red Cell Distribution Width 18 % (10.5-15); White Blood Count 10.3 10^3/ul (3.5-10.8)
[2017-10-30 22:31] LABS: EGFR Non-African American 78.6 (>60)
[2017-10-30] MEDS ORDERED: Iohexol 300* (CONTRAST) 10 ML SDV IV ONE (22:39)
[2017-10-30 23:01] LABS: Urine Appearance Clear; Urine Blood 2+ (Negative); Urine Color Yellow; Urine Ketones Negative (Negative); Urine Protein 3+(>=500 mg/dL) (Negative); Urine Specific Gravity 1.019 (1.010-1.030); Urine Urobilinogen Negative (Negative)
--- NOTE | 2017-10-31 00:30 | ED ---
Max Morocho Rebecca, scribed for Bryn Billy MD on 10/30/17 at 2134 . Complex/Multi-Sys Presentation - HPI Summary HPI Summary: Pt is a 47 y/o M BIBA who presents to ED c/o generalized weakness. States that he has been in bed for the last few months and that he is increasingly weak, having fallen about 7 times in the past few weeks. Additionally notes intermittent diarrhea and recent weight loss, unsure of how much. Denies fever, LOC, vomiting, and any pain. Pt reports he was diagnosed with Hepatitis B and hypothyroid a few months ago and has been weak since onset. Is on 50 mg Synthroid. Has been following up with a GI. - History Of Current Complaint Chief Complaint: EDWeakness Time Seen by Provider: 10/30/17 21:23 Hx Obtained From: Patient Onset/Duration: Still Present Severity Currently: None Location: Negative Aggravating Factor(s): Nothing Alleviating Factor(s): Nothing Associated Signs And Symptoms: Positive: Weakness - Generalized, Diarrhea. Negative: Vomiting - Allergies/Home Medications Allergies/Adverse Reactions: Allergies Allergy/AdvReac Type Severity Reaction Status Date / Time No Known Allergies Allergy Verified 09/05/14 12:21 Home Medications: Home Medications Cyanocobalamin TAB* [Vitamin B12 TAB*] 1,000 mcg PO DAILY 10/30/17 [History Confirmed 10/30/17] Levothyroxine TAB* [Synthroid TAB*] 50 mcg PO QAM 10/30/17 [History Confirmed ] PMH/Surg Hx/FS Hx/Imm Hx Endocrine/Hematology History: Denies: Hx Diabetes, Hx Thyroid Disease, Hx Anemia Cardiovascular History: Reports: Hx Hypertension - patient states that he has high bp for last 3 months Denies: Hx Aneurysm, Hx Angina, Hx Atrial Fibrillation, Hx Congenital Heart Disease, Hx Congestive Heart Failure, Hx Coronary Artery Disease, Hx Embolism, Hx Hypercholesterolemia, Hx Hypotension, Hx Myocardial Infarction, Hx Valvular Heart Disease Respiratory History: Denies: Hx Asthma Sensory History: Reports: Hx Contacts or Glasses Denies: Hx Hearing Aid Opthamlomology History: Reports: Hx Contacts or Glasses Psychiatric History: Reports: Hx Anxiety - self-proclaimed panic attacks - Surgical History Surgery Procedure, Year, and Place: right leg, femur fx Infectious Disease History: Yes Infectious Disease History: Denies: Hx Clostridium Difficile, Hx Hepatitis, Hx Human Immunodeficiency Virus (HIV), Hx of Known/Suspected MRSA, Hx Shingles, Hx Tuberculosis, Hx Known/ Suspected VRE, Hx Known/Suspected VRSA, History Other Infectious Disease, Traveled Outside the [place] in Last 30 Days - Family History Known Family History: Positive: Diabetes, Other - Colon CA - Social History Alcohol Use: None Hx Substance Use: Yes Substance Use Type: Reports: None Hx Tobacco Use: Yes Smoking Status (MU): Former Smoker Type: Cigarettes Amount Used/How Often: 1ppd Length of Time of Smoking/Using Tobacco: 30 years Have You Smoked in the Last Year: Yes Review of Systems Positive: Other - Generalized weakness, recent weight loss. Negative: Fever Positive: Diarrhea. Negative: Vomiting Positive: Other - NEGATIVE: Any pain Neurological: Other - NEGATIVE: LOC All Other Systems Reviewed And Are Negative: Yes Physical Exam - Summary Physical Exam Summary: VITAL SIGNS: Reviewed. GENERAL: ~Patient is a well-developed male who is lying comfortable in the stretcher. Patient is not in any acute respiratory distress. He is ill- appearing and has an ashy, pale color. HEAD AND FACE: No signs of trauma. No ecchymosis, hematomas or skull depressions. No sinus tenderness. EYES: PERRLA, EOMI x 2, No injected conjunctiva, no nystagmus. EARS: Hearing grossly intact. Ear canals and tympanic membranes are within normal limits. MOUTH: Oropharynx within normal limits. NECK: Supple, trachea is midline, no adenopathy, no carotid bruit, no c-spine tenderness, neck with full ROM. Bilateral JVD. CHEST: Symmetric, no tenderness at palpation LUNGS: Clear to auscultation bilaterally. No wheezing or crackles. CVS: Tachycardic, S1 and S2 present, no murmurs or gallops appreciated. ABDOMEN: Soft, non-tender. No signs of distention. No rebound no guarding, and no masses palpated. Bowel sounds are normal. EXTREMITIES: FROM in all major joints, no edema, no cyanosis or clubbing. NEURO: Alert and oriented x 3. No acute neurological deficits. Speech is normal and follows commands. SKIN: Dry and warm, ashy. Triage Information Reviewed: Yes Vital Signs On Initial Exam: Initial Vitals Temp Pulse Resp BP Pulse Ox 99.8 F 134 20 110/88 96 04/16/18 21:09 10/30/17 21:09 10/30/17 21:09 10/30/17 21:09 10/30/17 21:09 Vital Signs Reviewed: Yes Procedures - Procedure Summary Procedure Summary: Bedside echocardiogram: He has pericardial effusion with possible diastolic collapse of the right ventricle, superior vena cava seems dilated. Diagnostics - Vital Signs Vital Signs Temp Pulse Resp BP Pulse Ox 10/30/17 21:27 132 19 96 10/30/17 21:09 99.8 F 134 20 110/88 96 - Laboratory Result Diagrams: 10/30/17 22:00 10/30/17 22:00 Lab Statement: Any lab studies that have been ordered have been reviewed, and results considered in the medical decision making process. - CT CT Chest/Abd/Pel CT Interpretation Completed By: Radiologist - Chronic 1.9 cm thick pericardial effusion can be further evaluated with echocardiography. Stable moderate emphysema. Stable mild mediastinal, bilateral hilar and axillary adenopathy. Cachexia. No acute abdominal or pelvic pathology. ED physician reviewed this radiology report. Pending official report. - EKG 2157 Cardiac Rate: Tachycardia - Accelerated junctional rhythm at a rate of 134 bpm EKG Rhythm: Sinus Tachycardia EKG Interpretation: T wave inversion in the anterolateral leads Re-Evaluation - Re-Evaluation First Eval Re-Evaluation Time: 23:55 Comment: Bedside US done - see procedure note. Pt seems to be having pericardial effusion/possible tamponade. Pt will be transferred to [facility]. Complex Multi-Symp Course/Dx Assessment/Plan: Pt is a 47 y/o M BIBA who presents to ED c/o generalized weakness. States that he has been in bed for the last few months and that he is increasingly weak, having fallen about 7 times in the past few weeks. Additionally notes intermittent diarrhea and recent weight loss, unsure of how much. Denies fever, LOC, vomiting, and any pain. Pt reports he was diagnosed with Hepatitis B and hypothyroid a few months ago and has been weak since onset. CT Abd/Pel results above. Bedside US reveals he has pericardial effusion with possible diastolic collapse of the R ventricle, superior vena cava seems dilated. Pt seems to be having pericardial effusion/possible tamponade. Pt will be transferred to [facility]. Discussed care of pt with Dr. Richard Batista, making him aware of the case, and the pt will be transferred to [facility]'s ED. According to the transfer center, the ED attending, Dr. Braga, accepts pt for transfer to the ED.Bloodwork and UA were done. RBC of 2.58 L. In the ED course, pt received fluids. Pt will be transferred to [facility] with Dx of pericardial effusion, possible cardiac tamponade, anemia, and hypothyroid. 70 minutes of critical care time. - Diagnoses Provider Diagnoses: Pericardial effusion, Anemia, Hypothyroidism - Physician Notifications Discussed Care Of Patient With: Dr. Richard Batista - Cardiac surgeon at [facility] in [place], [place] Time Discussed With Above Provider: 00:07 Instructed by Provider To: Other - Will call back. Discussed care of pt with Dr. Batista again at 0016 who reports the pt will be sent to [facility]'s ED. According to the transfer center, the ED attending accepts pt for transfer to the ED. - Critical Care Time Critical Care Time: 30-74 min - 70 minutes Discharge - Sign-Out/Discharge Documenting (check all that apply): Discharge - Transfer - Discharge Plan Condition: Critical Disposition: TRANS HIGHER LVL OF CARE FAC Referrals: Carlos Nunes MD [Primary Care Provider] - The documentation as recorded by the Max funes Rebecca accurately reflects the service I personally performed and the decisions made by , Bryn Billy MD.
[2017-10-31 01:06] VITALS: BP 124/92
--- NOTE | 2017-10-31 08:04 | RAD ---
HISTORY: Weakness, weight loss, decreased appetite, hepatitis B COMPARISONS: CT of the chest dated April 05, 2017 TECHNIQUE: Multiple contiguous axial CT scans were obtained of the chest, abdomen, and pelvis after the administration of intravenous contrast. Coronal and sagittal multiplanar reformations are submitted for review.. Oral contrast was administered. Delayed images were obtained through the abdomen and pelvis. FINDINGS: CHEST NECK AND THYROID: The lower neck and thyroid are unremarkable. CHEST WALL: There are subcentimeter short axis axillary lymph nodes bilaterally, similar to the previous examination. HEART AND PERICARDIUM: There is moderate pericardial effusion. This is similar to the previous examination. AORTA AND PULMONARY VASCULATURE: The aorta and pulmonary vasculature are normal. MEDIASTINUM: There are multiple mediastinal lymph nodes measuring up to 1.2 cm in size, within the subcarinal, pretracheal, and paratracheal locations. This is similar to the previous examination. MARE: There is a 1.2 cm short axis left hilar lymph node. This is similar to the previous examination. AIRWAY AND ESOPHAGUS: The airway is unremarkable, without endobronchial filling defect. The esophagus is grossly normal. LUNG PARENCHYMA: There is subpleural nonseptal thickening and cystic airspace disease with a peripheral predominance. This is also similar to the previous examination. PLEURA: No pleural abnormalities are noted. BONES AND SOFT TISSUES: No bone or soft tissue abnormalities are noted. ABDOMEN/PELVIS: LIVER: The liver measures 19.1 cm in long axis. There is periportal edema. BILE DUCTS: There is no intrahepatic or extrahepatic biliary dilatation. GALLBLADDER: The gallbladder is fully distended and is not dilated. PANCREAS: The pancreas is normal, without mass or ductal dilatation. SPLEEN: Normal in size and appearance. UPPER GI TRACT: Evaluation of the gastrointestinal tract is limited by incomplete gastric distention. The upper GI tract is unremarkable. SMALL BOWEL & MESENTERY: The small bowel is normal in contour, course, and caliber. There is no obstruction or dilatation. COLON: The colon is normal in contour, course, caliber. There is no pericolonic inflammatory change. ADRENALS: Normal bilaterally. KIDNEYS: There is delayed excretion. There is no hydronephrosis or nephrolithiasis. BLADDER: The bladder is incompletely distended but is grossly normal. PELVIC ORGANS: The prostate gland is normal. The seminal vesicles are symmetric. AORTA: There is calcific atherosclerotic disease of the abdominal aorta and its branches, without aneurysmal dilatation IVC: Unremarkable LYMPH NODES: There are subcentimeter short axis inguinal lymph nodes measuring up to 0.8 cm in short axis. There is a subcentimeter short axis mesenteric lymph nodes are ABDOMINAL WALL: There is no evidence for abdominal wall hernia. BONES AND SOFT TISSUES: The bony skeleton is grossly unremarkable. OTHER: None IMPRESSION: 1. THERE IS SUBPLEURAL NONSEPTAL THICKENING AND CYSTIC PARENCHYMAL LUNG DISEASE WITH A PERIPHERAL PREDOMINANCE. THE DIFFERENTIAL INCLUDES EMPHYSEMA VERSUS HONEYCOMBING IN THE SETTING OF FIBROTIC LUNG DISEASE. 2. STABLE MODERATE PERICARDIAL EFFUSION. 3. STABLE MEDIASTINAL AND HILAR LYMPHADENOPATHY. 4. MILD HEPATOMEGALY. 5. DELAYED RENAL EXCRETION. 6. ATHEROSCLEROSIS.
--- NOTE | 2017-10-31 13:55 | PN ---
Progress Note - Progress Note Date of Service: 10/30/17 Note: ER CXR 10/30/17 with pericardial effusion. Pt. transferred 10/30/17 to [facility] [place] for pericardial effusion. No further workup needed.
== END 2017-10-31 01:05 | disposition short-term general hospital (02) ==
LOC: ED 20:59
DX: I31.3 Pericardial effusion (noninflammatory) (principal); D64.9 Anemia, unspecified; E03.9 Hypothyroidism, unspecified; I10 Essential (primary) hypertension; Z87.891 Personal history of nicotine dependence; J43.9 Emphysema, unspecified; R64 Cachexia; R16.0 Hepatomegaly, not elsewhere classified; I70.90 Unspecified atherosclerosis
CPT/HCPCS: 36415; 71260; 74177; 80053; 80074; 81003; 81015; 82150; 82270; 82550; 83605; 83690; 83735; 84443; 85025; 85610; 85730; 86140; 86705; 86850; 86900; 86901; 86922; 87086; 87522; 93005; 96360; 96374; 99284; P9040; Q9967